=== PATIENT | male | born 2000 | race African-American/Black ===

== ENCOUNTER 2020-09-17 17:23 | Inpatient (IN) | payer OTHER ==
[~2020-09-17] VITALS: Ht 170.2 cm; Wt 81.6 kg
[~2020-09-17 17:23] MED LIST: NAPROSYN500 MG PO; NORFLEX100 MG PO
[2020-09-17 17:34] VITALS: BP 145/92
[2020-09-17 19:08] LABS: HEMATOCRIT 44.6 % (42.0-52.0); HEMOGLOBIN 14.9 gm/dL (14.0-18.0); MCHC 33.5 g/dL (28.0-37.0); MCV 86.6 fL (80.0-100.0); PLATELET COUNT 227 thou/uL (150-400); RBC 5.15 mil/uL (4.50-6.00); RDW 14.5 % (10.5-14.5); WBC 22.6 thou/uL (4.0-11.0)
[2020-09-17 19:21] LABS: CALCIUM 9.5 mg/dL (8.5-10.1); POTASSIUM 3.6 mmol/L (3.5-5.1)
[2020-09-17 21:17] VITALS: BP 138/87
[2020-09-17 21:38] LABS: ABSOLUTE NEUTROPHILS 18.3 thou/uL (1.4-8.2)
[2020-09-17 21:39] LABS: ANISOCYTOSIS SLIGHT; POLYCHROMASIA 1+
[2020-09-17 22:00] VITALS: BP 115/83
[2020-09-17 22:03] VITALS: BP 132/61
--- NOTE | 2020-09-18 00:51 | NUR ---
ASSESSMENT: PT ARRIVED TO THE UNIT AT 2200 VIA ED. PT IS ALERT AND ORIENT TIMES FOUR, DAWKINS, DENIES NAUSEA. C/O SORE THROAT, ON NUMERIC PAIN SCALE; RATE PAIN AT 6/10. TYLENOL GIVEN WITH GOOD RELIEF. BENEDRYL GIVEN ONE TIME A SLEEP AID. PT IS MS. KRUEGER, AFEBRILE. PT DOES HAVE AN OCCASSIONAL SWEAT AND STATE THAT HE IS COLD. DOES NOT CURRENTLY HAVE A FEVER. WILL CONTINUE TO MONITOR.
[2020-09-18 03:39] VITALS: BP 103/66
[2020-09-18 05:46] LABS: HEMATOCRIT 43.7 % (42.0-52.0); HEMOGLOBIN 14.1 gm/dL (14.0-18.0); MCH 28.9 pg (26.0-34.0); MCHC 32.4 g/dL (28.0-37.0); MCV 89.5 fL (80.0-100.0); RBC 4.88 mil/uL (4.50-6.00); RDW 15.1 % (10.5-14.5); WBC 20.3 thou/uL (4.0-11.0)
[2020-09-18 05:53] LABS: CALCIUM 9.1 mg/dL (8.5-10.1); CREATININE 1.1 mg/dL (0.7-1.3); POTASSIUM 4.5 mmol/L (3.5-5.1)
[2020-09-18 07:35] VITALS: BP 113/73
--- NOTE | 2020-09-18 12:35 | NUR ---
INITIAL ASSESSMENT: SW reviewed chart and spoke with nursing and attending physician. Pt was admitted from home due to tonsillitis. Pt placed in Enhanced Isolation to r/o COVID. Pt's test is pending. Pt is febrile and not requiring O2. Pt is on IV abx and IV steroids. SW spoke with pt via phone. Introduced role of SW. Pt is alert/orientated x 4. Pt reports he lives in an apt. Pt is independent with ADLs. No use of DME. Pt is employed and has insurance. Pt states he does not have a PCP. Pt interested in [facility] providers. SW to provide list of [facility] medical groups for pt ro review. Plan is for pt to discharge home when medically stable. WILLY is following to assist as needed with discharge planning.
--- NOTE | 2020-09-18 17:39 | NUR ---
RN ASSUMED PT'S CARE AT 0700AM, PT IS A&OX3, PT IS CONTINING IV FLUID AND IV ABX, PT IS ON RA , PT'S VS ARE STABLE BY THIS TIME, PT DENIES SOB AND N/V, PT CAN GETS UP TO BATH ROOM BY HIMSELF. RN 'S FIRST COVID TEST IS NEGATIVE, PT WILL HAVE SECOND COVID TEST TODAY PER ORDER, RN WILL REPORT TO NEXT SHIFT, IF PE'S SECOND COVID TEST IS NEGATIVE, DC PT'S COVID ISOLATION.
[2020-09-18 17:55] VITALS: BP 137/88
[2020-09-18 19:05] VITALS: BP 137/87
--- NOTE | 2020-09-18 21:35 | NUR ---
PT WATCHING TV IN THE DARK. IVF INTACT. PT HAD FOOD DELIVERED FROM HOME. PT REQUESTED TYLENOL AND SLEEPING PILL BEFORE BED. PT REPORTS TENDER THROAT CONTINUES. INDEP WITH ADLS.
[2020-09-19 03:37] VITALS: BP 125/97
[2020-09-19 06:03] LABS: HEMOGLOBIN 13.6 gm/dL (14.0-18.0); MCH 28.6 pg (26.0-34.0); MCHC 32.3 g/dL (28.0-37.0); MCV 88.5 fL (80.0-100.0); RBC 4.74 mil/uL (4.50-6.00); RDW 14.3 % (10.5-14.5); WBC 19.1 thou/uL (4.0-11.0)
[2020-09-19 06:17] LABS: CALCIUM 8.8 mg/dL (8.5-10.1); CREATININE 0.9 mg/dL (0.7-1.3); MAGNESIUM 2.1 mg/dL (1.8-2.4); POTASSIUM 4.4 mmol/L (3.5-5.1)
[2020-09-19 07:05] VITALS: BP 117/71
--- NOTE | 2020-09-19 08:57 | NUR ---
care assumed at 0700, pt alert and oriented x4, denies any pain, nasusea and vomitting.pt stated sore throat and tonsil pain is much better and tolerable. up ad albaro and independent. assessment and vitals signs stable. denies any needs cyril. migel hassan notified about pt negative covid test and waiting for response to take pt of isolation.
--- NOTE | 2020-09-19 14:12 | NUR ---
SW reviewed chart and spoke with nursing and attending physician. Enhanced Isolation precautions have been discontinued. Pt is on IV abx and IV steroids. WBC elevated. ENT consulted. SW placed list of [facility] provider info on pt's chart. This info to be provided to pt upon discharge. Plan is for pt to discharge home when medically stable. WILLY is following to assist as needed with discharge planning.
[2020-09-19 16:05] VITALS: BP 144/88
[2020-09-19 20:22] VITALS: BP 123/74
[2020-09-20 05:21] LABS: HEMATOCRIT 38.6 % (42.0-52.0); HEMOGLOBIN 12.6 gm/dL (14.0-18.0); MCH 28.8 pg (26.0-34.0); MCHC 32.6 g/dL (28.0-37.0); MCV 88.4 fL (80.0-100.0); RBC 4.37 mil/uL (4.50-6.00); RDW 14.2 % (10.5-14.5); WBC 11.6 thou/uL (4.0-11.0)
[2020-09-20 05:29] LABS: CALCIUM 8.3 mg/dL (8.5-10.1); CREATININE 0.8 mg/dL (0.7-1.3); POTASSIUM 3.5 mmol/L (3.5-5.1)
--- NOTE | 2020-09-20 06:29 | NUR ---
PATIENT RESTING COMFORTABLY IN BED ON RA. NO SIGNIFICANT EVENTS OVER NIGHT. PATIENT FEELS MUCH BETTER THAN ADMISSION AND IS ANTICIPATING DISCHARGE TODAY. CONTINUE TO FOLLOW PLAN OF CARE.
[2020-09-20 08:01] VITALS: BP 130/83
--- NOTE | 2020-09-20 09:50 | NUR ---
CARE ASSUMED AT 0700, PT ALERT AND ORIENTED X4, DENIES ANY PAIN, NAUSEA AND VOMITTING. PT CONTINUES TO BE ON ROOM AIR, NO SIGNS OF DISTRESS. ANTICIPATING FOR DISCHARGE TODAY. PT DENIES ANY NEEDS AT MOMENT. WILL CONTINUE TO MONITOR.
[2020-09-20] MEDS ORDERED: AUGMENTIN 875-1 EACH PO (12:18)
[2020-09-20 12:42] VITALS: BP 130/83
--- NOTE | 2020-09-20 13:50 | NUR ---
DISCHARGE NOTE: SW reviewed chart and spoke with nursing. Pt is medically stable for discharge home today. No discharge needs identified at this time. List of [facility] providers sent home with pt for review. No SW needs identiifed, but is available to assist should needs arise.
== END 2020-09-20 13:26 | disposition home or self-care (01) | DRG 872 ==
LOC: ER 17:23 → EROBS 20:48 → 3W 20:48
PROVIDERS: Nurse Practitioner; ADMIT Internal Medicine; ATTEND Internal Medicine
DX: A41.9 Sepsis, unspecified organism (principal); J02.9 Acute pharyngitis, unspecified; J45.909 Unspecified asthma, uncomplicated; Z20.822 Contact with and (suspected) exposure to COVID-19; Z79.899 Other long term (current) drug therapy
CPT/HCPCS: 10080